=== PATIENT | female | born 2000 | race Caucasian/White ===

== ENCOUNTER 2022-01-21 10:24 | Outpatient (CLI) | payer OTHER, BC ==
[2022-01-21 19:25] LABS: SARS-CoV-2 PCR by NAA Not Detected (NotDetected)
== END 2022-01-21 10:25 | disposition home or self-care (01) ==
LOC: CSHLAB 10:24
PROVIDERS: ATTEND Obstetrics & Gynecology
DX: Z20.822 Contact with and (suspected) exposure to COVID-19 (principal)
CPT/HCPCS: U0003; U0005

== ENCOUNTER 2024-09-19 06:00 | Inpatient (IN) | payer OTHER ==
[2024-09-19] MEDS ORDERED: Promethazine HCl 25 MG/ML VIAL IM PRN ×2 (06:24→09:41)
[2024-09-19] MEDS ORDERED: Oxytocin 30 units/NS 500 ML 500 ML IV SCH (06:24)
[2024-09-19] MEDS ORDERED: Ondansetron PF 4 MG/2 ML Vial IVP PRN ×2 (06:24→19:38)
[2024-09-19] MEDS ORDERED: Lidocaine 1% (PF) 30 ML VIAL SC PRN (06:24)
[2024-09-19] MEDS ORDERED: HYDROcodone/Acetaminophen 5/325 mg Tablet PO PRN ×4 (06:24→19:38)
[2024-09-19] MEDS ORDERED: hydrALAZINE 20 MG/ML VIAL SLOW IVP PRN ×2 (06:24→19:38)
[2024-09-19] MEDS ORDERED: fentaNYL 50 mcg/mL 1 mL Vial SLOW IVP PRN (06:24)
[2024-09-19 06:58] LABS: Hematocrit 31.9 % (34.9-44.5); Hemoglobin 10.1 g/dL (12.0-15.5); Mean Corpuscular HGB CONC 31.7 g/dL (32.0-36.0); Mean Corpuscular Hemoglobin 25.1 pg (27.0-33.0); Mean Corpuscular Volume 79.2 fL (81.6-98.3); Mean Platelet Volume 10.9 fL (7.4-10.4); Platelet Count 251 10x3/uL (150-450); RBC Distribution Width 13.8 % (11.5-14.5); Red Blood Cell (RBC) Count 4.03 10x6/uL (3.90-5.03)
[2024-09-19] MEDS: Oxytocin 30 units/NS 500 ML 500 ML IV SCH (07:01)
[2024-09-19 07:02] VITALS: BMI 27.5
[2024-09-19] MEDS: Lactated Ringer's 1,000 ML IV SCH (07:05)
[2024-09-19 07:27] LABS: HBsAg Index 0.23 S/CO (0-0.99); Hep B Surf Ag - L&D Non-Reactive S/CO (NonReactive)
[2024-09-19 07:29] LABS: Syphilis Antibody Nonreactive (Nonreactive); Syphilis Antibody Index 0.05 S/CO (<1.00 Non-Reactive)
[2024-09-19] MEDS: fentaNYL/Ropivacaine Epidural 100 ML ONE (09:40)
[2024-09-19] MEDS ORDERED: ePHEDrine Sulfate 50 MG/10 ML VIAL SLOW IVP PRN (09:41)
[2024-09-19] MEDS ORDERED: Naloxone HCl 0.4 mg/ml Vial IVP PRN ×2 (09:41)
[2024-09-19] MEDS ORDERED: Lactated Ringer's 500 ML IV PRN (09:41)
[2024-09-19] MEDS ORDERED: Moisturizing Cream (Eucerin) 113 GM JAR TOP PRN (09:41)
[2024-09-19] MEDS ORDERED: diphenhydrAMINE 50 MG/ML VIAL IVP PRN (09:41)
[2024-09-19] MEDS ORDERED: Communication Order-Pharmacy FS SCH (09:45)
[2024-09-19] MEDS ORDERED: fentaNYL 2 mcg/Ropivacaine 0.2% Epidural 100 ML CADD EPIDURAL SCH (09:45)
[2024-09-19] MEDS: Misoprostol 200 MCG TAB ONE (11:36)
[2024-09-19] MEDS: Methylergonovine 0.2 MG/ML VIAL ONE (11:39)
[2024-09-19] MEDS: Ondansetron PF 4 MG/2 ML Vial IVP PRN (12:42)
[2024-09-19] MEDS ORDERED: Methylergonovine 0.2 MG/ML VIAL IM SCH (12:45)
[2024-09-19] MEDS: Misoprostol 200 MCG TAB PR SCH (13:05)
[2024-09-19] MEDS: Ibuprofen 800 MG TAB PO PRN (14:34)
[2024-09-19] MEDS: Acetaminophen 325 MG TAB PO PRN (14:34)
[2024-09-19] MEDS ORDERED: Bisacodyl 10 MG SUPP PR PRN (19:38)
[2024-09-19] MEDS ORDERED: diphenhydrAMINE 25 MG CAP PO PRN (19:38)
[2024-09-19] MEDS ORDERED: Preparation H Ointment 28 GM TUBE PR PRN (19:38)
[2024-09-19] MEDS ORDERED: Boostrix 0.5 ML (Tdap) VIAL (>/=7 yrs of age) IM ONE (19:38)
[2024-09-19] MEDS ORDERED: Milk Of Magnesia 30 ML UDCUP PO PRN (19:38)
[2024-09-19] MEDS ORDERED: Lanolin Ointment 7 GM TUBE TOP PRN (19:38)
[2024-09-19] MEDS: Ibuprofen 800 MG TAB PO SCH (21:45)
[2024-09-19] MEDS: Docusate 100 MG CAP PO SCH (21:45)
[2024-09-20] MEDS: Benzocaine-Menthol 82.5 ML CAN TOP PRN (06:34)
[2024-09-20] MEDS: Prenatal Vitamin 1 TAB PO SCH (07:36)
[2024-09-20] MEDS: Ferrous Sulfate 325 MG TAB PO SCH (08:00)
[2024-09-20 11:24] VITALS: BP 106/57; TEMP 98.6
== END 2024-09-20 14:10 | disposition home or self-care (01) | DRG 807 ==
LOC: CSHLD 06:13 → CSHPED 13:45
PROVIDERS: ADMIT Obstetrics & Gynecology; ATTEND Obstetrics & Gynecology
PROC: 10907ZC Drainage of Amniotic Fluid, Therapeutic from Products of Conception, Via Natural or Artificial Opening (ICD-10-PCS; principal; 2024-09-19)
PROC: 10E0XZZ Delivery of Products of Conception, External Approach (ICD-10-PCS; 2024-09-19)
PROC: 0HQ9XZZ Repair Perineum Skin, External Approach (ICD-10-PCS; 2024-09-19)
PROC: 0UQMXZZ Repair Vulva, External Approach (ICD-10-PCS; 2024-09-19)
DX: O24.429 Gestational diabetes mellitus in childbirth, unspecified control (principal); Z37.0 Single live birth; Z3A.39 39 weeks gestation of pregnancy; O70.0 First degree perineal laceration during delivery; O71.82 Other specified trauma to perineum and vulva
CPT/HCPCS: 51702; 85027; 86780; 86850; 86900; 86901; 87340; J2210; J2405; J2590; J7120

== ENCOUNTER 2025-09-13 10:27 | Day surgery (SDC) | payer OTHER ==
[2025-09-13 10:53] VITALS: BMI 27.3
[2025-09-13] MEDS ORDERED: hydrALAZINE 20 MG/ML VIAL SLOW IVP PRN (11:22)
[2025-09-13] MEDS ORDERED: Acetaminophen 500 MG TAB PO SCH (11:30)
[2025-09-13] MEDS: Ondansetron PF 4 MG/2 ML Vial IVP SCH (11:56)
[2025-09-13 12:08] LABS: #Basophils Less than 0.03 10x3/uL (0.0-0.2); #Eosinophils 0.03 10x3/uL (0.0-0.5); #Monocytes 0.42 10x3/uL (0.0-1.1); #Neutrophils 6.29 10x3/uL (1.5-8.4); %Basophils 0.2 % (0.0-2.0); %Eosinophils 0.4 % (0.0-6.0); %Lymphocytes 20.3 % (18.0-47.0); %Monocytes 4.9 % (0.0-10.0); %Neutrophils 73.4 % (40.0-75.0); Hematocrit 36.9 % (34.9-44.5); Hemoglobin 13.3 g/dL (12.0-15.5); Mean Corpuscular Hemoglobin 31.3 pg (27.0-33.0); Mean Corpuscular Volume 86.8 fL (81.6-98.3); Platelet Count 190 10x3/uL (150-450); Red Blood Cell (RBC) Count 4.25 10x6/uL (3.90-5.03); White Blood Cell (WBC) Count 8.57 10x3/uL (3.5-10.5)
[2025-09-13 12:13] LABS: Glucose, Urine (Dipstick) Normal (Negative); Leukocyte 500 (Negative); Protein, Urine (Dipstick) 15 mg/dl (Neg-Trace); Specific Gravity, Urine 1.010 (1.005-1.030)
[2025-09-13 12:22] LABS: ALT (SGPT) 16 U/L (Less than 34); AST (SGOT) 20 U/L (11-34); Albumin 3.1 g/dL (3.1-4.5); Alkaline Phosphatase 144 U/L (40-110); Anion Gap 14 mmol/L (10-20); BUN (Urea Nitrogen) 7 mg/dL (7.0-18.7); Bilirubin, Total 0.4 mg/dL (0.3-1.2); Calc. Creatinine Clearance 171 mL/min (70-130); Calcium 8.8 mg/dL (7.8-10.44); Carbon Dioxide 20 mmol/L (22-29); Chloride 108 mmol/L (98-107); Globulin 3.3 g/dL (2.4-3.5); Glucose 85 mg/dL (70-105); Potassium 4.2 mmol/L (3.5-5.1); Sodium 138 mmol/L (136-145)
[2025-09-13 12:30] LABS: Bacteria/HPF 2+ HPF (None Seen); CAUTI Indications for Culture Pregnancy; RBC/HPF 0-3 HPF (0-3)
[2025-09-13 12:31] LABS: Urine Culture Reflex Yes Yes
[2025-09-13] MEDS: cefTRIAXone\\ROCEPHIN 1 GM in Sodium Chloride 0.9% 100 ML IVPB SCH (13:12)
[2025-09-13] MEDS: Promethazine HCl 25 MG, Admixture Fee 1 EACH in Sodium Chloride 0.9% 50 ML IVPB SCH (14:58)
== END 2025-09-13 16:00 | disposition home or self-care (01) ==
LOC: CSHLD/OP 10:27
PROVIDERS: ATTEND Obstetrics & Gynecology
DX: O99.891 Other specified diseases and conditions complicating pregnancy (principal); Z3A.36 36 weeks gestation of pregnancy; O21.2 Late vomiting of pregnancy; Z79.899 Other long term (current) drug therapy
CPT/HCPCS: 80053; 81001; 85025; 87086; 96360; 96361; 99285; J0696; J2405; J2550

== ENCOUNTER 2025-09-29 06:00 | Inpatient (IN) | payer OTHER ==
[2025-09-29] MEDS ORDERED: HYDROcodone/Acetaminophen 5/325 mg Tablet PO PRN ×3 (07:06→16:34)
[2025-09-29] MEDS ORDERED: Ibuprofen 800 MG TAB PO PRN (07:06)
[2025-09-29] MEDS ORDERED: Lidocaine 1% (PF) 30 ML VIAL SC PRN (07:06)
[2025-09-29] MEDS ORDERED: Oxytocin 30 units/NS 500 ML 500 ML IV SCH (07:06)
[2025-09-29] MEDS ORDERED: hydrALAZINE 20 MG/ML VIAL SLOW IVP PRN ×2 (07:06→16:34)
[2025-09-29 07:11] VITALS: BMI 28.5
[2025-09-29 07:20] LABS: Hematocrit 36.5 % (34.9-44.5); Hemoglobin 12.7 g/dL (12.0-15.5); Mean Corpuscular Hemoglobin 30.8 pg (27.0-33.0); Mean Corpuscular Volume 88.4 fL (81.6-98.3); Platelet Count 187 10x3/uL (150-450); Red Blood Cell (RBC) Count 4.13 10x6/uL (3.90-5.03); White Blood Cell (WBC) Count 6.71 10x3/uL (3.5-10.5)
[2025-09-29] MEDS: Penicillin G Potassium 5 MILL.UNITS in Sodium Chloride 0.9% 100 ML IVPB SCH (07:30)
[2025-09-29] MEDS: Oxytocin 30 units/NS 500 ML 500 ML IV SCH (07:42)
[2025-09-29 07:50] LABS: Syphilis Antibody Index 0.06 S/CO (<1.00 Non-Reactive)
[2025-09-29 07:51] LABS: Hep B Surf Ag - L&D Non-Reactive S/CO (NonReactive)
[2025-09-29] MEDS ORDERED: Bupivacaine 0.25% HCL 30 ML VIAL ONE (08:00)
[2025-09-29] MEDS: Penicillin G 2.5 MILL.units 2.5 MILL.UNITS in Premix 1 BAG IVPB SCH (11:18)
[2025-09-29] MEDS: Ondansetron PF 4 MG/2 ML Vial IVP PRN (12:14)
[2025-09-29] MEDS: fentaNYL/Ropivacaine Epidural 100 ML ONE (12:25)
[2025-09-29] MEDS ORDERED: Acetaminophen 325 MG TAB PO PRN (12:47)
[2025-09-29] MEDS ORDERED: Ondansetron PF 4 MG/2 ML Vial IVP PRN ×2 (12:47→16:34)
[2025-09-29] MEDS ORDERED: diphenhydrAMINE 50 MG/ML VIAL IVP PRN (12:47)
[2025-09-29] MEDS ORDERED: fentaNYL 2 mcg/Ropivacaine 0.2% Epidural 100 ML CADD EPIDURAL SCH (13:00)
[2025-09-29] MEDS ORDERED: Communication Order-Pharmacy FS SCH (13:00)
[2025-09-29] MEDS ORDERED: Milk Of Magnesia 30 ML UDCUP PO PRN (16:34)
[2025-09-29] MEDS ORDERED: diphenhydrAMINE 25 MG CAP PO PRN (16:34)
[2025-09-29] MEDS ORDERED: Lanolin Ointment 7 GM TUBE TOP PRN (16:34)
[2025-09-29] MEDS ORDERED: Bisacodyl 10 MG SUPP PR PRN (16:34)
[2025-09-29] MEDS ORDERED: Benzocaine-Menthol 82.5 ML CAN TOP PRN (16:34)
[2025-09-29] MEDS: Ibuprofen 800 MG TAB PO SCH (17:08)
[2025-09-29] MEDS: Ferrous Sulfate 325 MG TAB PO SCH (17:09)
[2025-09-29] MEDS: HYDROcodone/Acetaminophen 5/325 mg Tablet PO PRN (19:54)
[2025-09-30 11:17] VITALS: BP 108/57; TEMP 98.3
== END 2025-09-30 15:20 | disposition home or self-care (01) | DRG 807 ==
LOC: CSHLD 06:08 → CSHPP 15:15
PROVIDERS: ADMIT Obstetrics & Gynecology; ATTEND Obstetrics & Gynecology
PROC: 10E0XZZ Delivery of Products of Conception, External Approach (ICD-10-PCS; principal; 2025-09-29)
PROC: 10E0XZZ Delivery of Products of Conception, External Approach (ICD-10-PCS; 2025-09-29)
DX: O99.824 Streptococcus B carrier state complicating childbirth (principal); Z37.0 Single live birth; Z3A.39 39 weeks gestation of pregnancy; Z79.899 Other long term (current) drug therapy; Z28.21 Immunization not carried out because of patient refusal
CPT/HCPCS: 36415; 51702; 85027; 86780; 86850; 86900; 86901; 87340; J0665; J2405; J2540; J2590; J7120